=== PATIENT | male | born 1980 | race American Indian/Alaskan Native ===

== ENCOUNTER 2023-04-22 05:57 | Day surgery (SDC) | payer BC, OTHER ==
[2023-04-16 11:21] VITALS: BP 126/83
[~2023-04-22] VITALS: Ht 167.6 cm; Wt 68.2 kg
[~2023-04-22 05:57] MED LIST: HYDROCODON-ACE1 EA10 PO; LACTATED RINGER'S 1,000 ML IV SCH; ROSUVASTATIN CAL5 MG PO; VITAMIN D210 MCG PO
[2023-04-22 06:16] VITALS: BP 127/85
[2023-04-22] MEDS ORDERED: CEFAZOLIN SODIUM 2 GM/20 ML SYR IV SCH (07:00)
[2023-04-22] MEDS ORDERED: LIDOCAINE HCL 1% 5 ML SDV INJ ONE (07:00)
[2023-04-22] MEDS ORDERED: IBLOOD GLUCOSE TEST STRIP 1 EA TEST VI PRN ×2 (07:00→08:15)
[2023-04-22] MEDS ORDERED: HEParin SOD (PORCINE) 5,000 UNIT/0.5 ML SYR SUB-Q SCH (07:00)
[2023-04-22] MEDS ORDERED: propofoL 200 MG/20 ML VIAL ONE (07:06)
[2023-04-22] MEDS ORDERED: LIDOCAINE HCL 2% 20 MG/ML VIAL INJ ONE (07:06)
[2023-04-22] MEDS ORDERED: ACETAMINOPHEN 1,000 MG/100 ML VIAL ONE (07:06)
[2023-04-22] MEDS ORDERED: ondansetron HCL 4 MG/2 ML VIAL ONE (07:06)
[2023-04-22] MEDS ORDERED: DEXAMETHASONE SOD PHOS 4 MG/ML VIAL ONE ×2 (07:06→07:07)
[2023-04-22] MEDS ORDERED: MIDAZOLAM HCL 2 MG/2 ML VIAL ONE (07:06)
[2023-04-22] MEDS ORDERED: Ropivacaine HCl 0.5% 30 ML VIAL ONE (07:06)
[2023-04-22] MEDS ORDERED: fentaNYL citrate 100 MCG/2 ML VIAL ONE (07:53)
[2023-04-22] MEDS ORDERED: PROCHLORPERAZINE EDISYLATE 10 MG/2 ML VIAL IV PRN (08:15)
[2023-04-22] MEDS ORDERED: droPERidol 5 MG/2 ML VIAL IV PRN (08:15)
[2023-04-22] MEDS ORDERED: NALOXONE HCL 0.4 MG SYR IV PRN (08:15)
[2023-04-22] MEDS ORDERED: ondansetron HCL 4 MG/2 ML VIAL IV PRN ×2 (08:15→09:15)
[2023-04-22] MEDS ORDERED: HYDROmorphone HCL 1 MG/ML SYR IV PRN (08:15)
[2023-04-22] MEDS ORDERED: fentaNYL citrate 100 MCG/2 ML VIAL IV PRN (08:15)
[2023-04-22] MEDS ORDERED: MOTRIN IB200 MG PO (09:12)
[2023-04-22] MEDS ORDERED: PERCOCET 7.5-31 EACH PO (09:12)
--- NOTE | 2023-04-22 09:12 | NUR ---
04/22/23 0912 Nikia Gann 0905-PATIENT ARRIVED TO PACU ON 6L MASK RR SHALLOW. NONAROUSABLE RN DOING JAW THRUST TO MAINTAIN OPEN AIRWAY. 100% IVF INFUSING. SR. RIGHT GROIN DRESSING CDI. 0908-PATIENT STARTING TO BECOME REACTIVE TO VERBAL STIMULI NOT FOLLOWING COMMANDS EYES CLOSED MOVES HEAD TO SIDE. RN NOT NEEDING TO HOLD JAW ANY LONGER.
[2023-04-22] MEDS ORDERED: TYLENOL EXTRA500 MG PO (09:13)
[2023-04-22] MEDS ORDERED: ACETAMINOPHEN 500 MG TAB PO PRN (09:15)
[2023-04-22] MEDS ORDERED: IBUPROFEN 600 MG TAB PO PRN (09:15)
[2023-04-22] MEDS ORDERED: OXYCODONE/APAP 7.5/325 TAB PO PRN (09:15)
[2023-04-22] MEDS ORDERED: LACTATED RINGER'S 1,000 ML IV SCH (09:15)
[2023-04-22 09:37] VITALS: BP 125/85
--- NOTE | 2023-04-22 09:59 | NUR ---
LE 0935-PATIENT BACK TO ROOM FROM PACU ON RA. RECEIVED REPORT FROM RNEETTA LAWS. PATIENT IS AWAKE. RESP EVEN AND UNLABORED. RATES PAIN 2/10. DENIES NAUSEA. PROVIDED PATIENT WITH WATER AND CRACKERS. LE 0940-PATIENT UP TO RESTROOM. GAIT STEADY AND TOLERATED WELL. PATIENT VOIDED 675ML. LE 0945-PATIENT BACK TO ROOM. CALL LIGHT WITHIN REACH. AT BEDSIDE. NO OTHER NEEDS AT THIS TIME.
[2023-04-22 10:31] VITALS: BP 106/72
[2023-04-22] MEDS ORDERED: MORPHINE SULFATE 10 MG/ML VIAL ONE (10:32)
[2023-04-22] MEDS ORDERED: PHENYLEPHRINE HCL 10 MG/ML VIAL ONE (10:45)
--- NOTE | 2023-04-22 11:19 | NUR ---
LE 1031-PATIENT LAYING IN BED. RESP EVEN AND UNLABORED. RATES PAIN 2/10 AND DENIES NAUSEA. PATIENT IS READY TO GO HOME. WILL GET DRESSED. IN ROOM TO HELP PATIENT. CALL LIGHT WITHIN REACH.
--- NOTE | 2023-04-22 11:30 | NUR ---
CHASITY 1050-WENT OVER DISCHARGE INSTRUCTIONS WITH PATIENT AND . ALL QUESTIONS ANSWERED. WENT OVER MEDICATIONS. PATIENT AMBULATES TO WHEELCHAIR. RIDE PROVIDED TO FRONT OF HOSPITAL WHERE WAS WAITING WITH THE CAR.
--- NOTE | 2023-04-23 13:37 | OR ---
[facility] [address], [place] [address] Signed DATE OF OPERATION: 04/22/2023 SURGEON: Doreen Burrell MD PREOPERATIVE DIAGNOSIS: Right inguinal hernia. POSTOPERATIVE DIAGNOSES: 1. Right indirect inguinal hernia. 2. Lipoma of cord. PROCEDURES: 1. Repair of right inguinal hernia with implantation of Prolene mesh underlay technique. 2. Excision of cord lipoma. ANESTHESIA: General LMA, Mesfin Eastman CRNA and preoperative ilioinguinal nerve block as well as local anesthesia 10 mL of 0.25% Marcaine with epinephrine. INDICATION: This 42-year-old white man is a patient of personnel at [facility] and was referred for complaints of right groin pain and findings consistent with reducible right inguinal hernia. He has no chronic cough or constipation, though does have decreased urinary stream from time to time. He is admitted at this time to undergo right inguinal hernia repair. He understands the risk of bleeding, infection, and recurrence. FINDINGS: A moderate-sized cord lipoma was noted associated with the cord, which was excised. His hernia was a direct defect medial to the inferior epigastric vessels. Repair consisted of implantation of Prolene mesh in the properitoneal space. DESCRIPTION OF PROCEDURE: The patient was brought to the operating room, given a general LMA type anesthetic. Preoperative antibiotic Ancef was given. Sequential compression device stockings were used and heparin subcutaneously administered. The lower abdomen was clipped and prepared with a chlorhexidine solution and draped sterilely. A small incision was made cephalad to the right pubic tubercle. Dissection was carried through the subcutaneous tissue with electrocautery. External oblique was incised along its fibers revealing the underlying cord. The cord was mobilized from the floor with blunt and electrocautery dissection. Cremasteric muscle fibers were divided with electrocautery. Electronically Signed By: DOREEN BURRELL MD 04/23/23 1337 PATIENT NAME: ELIZABETH CARTER OPERATIVE REPORT DATE OF : 84 REPORT #: [id number] PHYSICIAN: DOREEN BURRELL MD PCP: [facility] REPORT IS CONFIDENTIAL AND NOT TO BE RELEASED WITHOUT AUTHORIZATION [facility] [address], [place] [address] Signed ilioinguinal nerve branch was not identified. There was no sign of indirect hernia sac. There was a cord lipoma, this was carefully dissected free, secured at the base with hemostat, divided and pedicle secured with a silk tie. The specimen was passed for pathology. Examination of the floor of the canal showed a direct defect in the midportion of the floor. An Allis clamp was applied to the tendon of the transversus abdominis and the attenuated fibers of the fascia of the transversalis were incised with electrocautery. Blunt dissection was used to separate the properitoneal space. A segment of Prolene mesh was cut to an elliptical configuration and secured in an underlay technique with interrupted 2-0 Prolene sutures. The defect was cut in the graft to accommodate the cord and the tails of the graft were secured laterally with all due care. Careful inspection showed no sign of encumbrance of any nerve branch or other similar structure. A 10 mL of 0.25% Marcaine with epinephrine was injected locally. The cord was placed in the canal and irrigation undertaken showing no sign of bleeding. The external oblique was reapproximated with running 2-0 Vicryl suture. Amna layer was reapproximated with interrupted 3-0 Vicryl and skin closed with running subcuticular 3-0 Vicryl. Steri-Strips were applied as was an Acticoat dressing. The patient was ultimately extubated and transferred to the recovery room in good condition having suffered no complications. Sponge, needle, and instrument counts were reported as correct x3. MD BEKAH Larsen/GLORIAL /[id number] cc: [facility] Copies: ~ Electronically Signed By: DOREEN BURRELL MD 04/23/23 1337 PATIENT NAME: ELIZABETH CARTER OPERATIVE REPORT DATE OF : 84 REPORT #: [id number] PHYSICIAN: DOREEN BURRELL MD PCP: [facility] REPORT IS CONFIDENTIAL AND NOT TO BE RELEASED WITHOUT AUTHORIZATION
--- NOTE | 2023-04-24 13:27 | PATH ---
[facility] [address] [facility] [place], [place] [address] Signed SPECIMEN(S): A LIPOMA OF CORD SPECIMEN SOURCE: A. LIPOMA OF CORD CLINICAL HISTORY: Right inguinal hernia FINAL PATHOLOGIC DIAGNOSIS: Lipoma of cord: - Mature adipose tissue, clinically lipoma BRP MICROSCOPIC EXAMINATION: Histologic sections of all submitted blocks are examined by light microscopy. These findings, together with the gross examination, support the pathologic diagnosis. GROSS DESCRIPTION: The specimen, labeled and designated "Bonifer, lipoma of cord," is received in formalin and consists of yellow-owen, smooth, soft fibroadipose tissue that measure 5.5 x 2.2 x 0.5 cm. Specimen is inked. Sectioning through the specimen to reveal irregular adipose tissue. Physical Integration Practitioner sections are submitted in (A1). JS (under the direct supervision of a pathologist) The Gross Description was prepared using a voice recognition system. The report was reviewed for accuracy; however, sound-alike word errors, addition and/or deletions may occur. If there is any question about this report, please contact Client Services. ADDITIONAL NOTES: Immunohistochemical and/or in situ hybridization studies if performed in this case included appropriate positive controls that reacted as expected. This test was developed and its performance characteristics determined by [facility]. It has not been cleared or approved by the U.S. Food and Drug Administration. The FDA has determined that such clearance or approval is not necessary. This test is used for clinical purposes. It should not be regarded as investigational or for research. [facility] is certified under the Clinical Laboratory Improvement Amendments of 1988 (CLIA) as qualified to perform high complexity clinical PATIENT NAME: ELIZABETH CARTER PATHOLOGY DATE OF : 84 REPORT #: [id number] PHYSICIAN: JAYLON PATHOLOGY PCP: [facility] REPORT IS CONFIDENTIAL AND NOT TO BE RELEASED WITHOUT AUTHORIZATION [facility] [address] [facility] [place], [place] [address] Signed laboratory testing. PERFORMING LABORATORY: Technical component was performed by [facility], [address] [place] [address] (CLIA# [id number]). Professional interpretation was performed by [facility] [address] [place] [id number] Diagnostician: Howard Denise MD Pathologist Electronically Signed 04/24/2023 Copies: ~ PATIENT NAME: ELIZABETH CARTER PATHOLOGY DATE OF : 84 REPORT #: [id number] PHYSICIAN: JAYLON PATHOLOGY PCP: [facility] REPORT IS CONFIDENTIAL AND NOT TO BE RELEASED WITHOUT AUTHORIZATION
== END 2023-04-22 10:50 | disposition home or self-care (01) ==
LOC: DS 05:57
PROVIDERS: ATTEND Surgery
PROC: 3E0T3BZ Introduction of Anesthetic Agent into Peripheral Nerves and Plexi, Percutaneous Approach (ICD-10-PCS; 2023-04-22)
PROC: 0YU50JZ Supplement Right Inguinal Region with Synthetic Substitute, Open Approach (ICD-10-PCS; principal; 2023-04-22 07:30)
DX: K40.90 Unilateral inguinal hernia, without obstruction or gangrene, not specified as recurrent (principal); E78.5 Hyperlipidemia, unspecified; R39.12 Poor urinary stream
CPT/HCPCS: 00830; 64450; 76942; C1781; J0131; J0690; J1100; J1644; J2250; J2270; J2371; J2405; J2704; J2795; J3010; J7121